=== PATIENT | female | born 1990 | race Asian ===

== ENCOUNTER → 2025-02-24 09:03 | Outpatient (BNVA) | payer SELFPAY | PROVIDERS: PCP Nurse Practitioner Family; Visit Provider Nurse Practitioner Family | DX: E03.9 Hypothyroidism, unspecified (principal); F41.1 Generalized anxiety disorder; Z13.6 Encounter for screening for cardiovascular disorders | CPT/HCPCS: 80053; 80061; 82306; 82607; 82746; 83735; 84439; 84443; 85025; 86376 ==

== ENCOUNTER 2025-03-10 16:42 | Outpatient (CLI) | payer SELFPAY ==
--- NOTE | 2025-03-10 17:00 | US_ITS ---
WS: [id number] THYROID ULTRASOUND HISTORY: E03.9 - Hypothyroidism, unspecified COMPARISON: None available. Right lobe: 1.2 cm x 1.5 cm x 3.7 cm (w x ap x l). Volume: 3.0 cm3. Normal sized thyroid. Very heterogeneous thyroid. There is a nodule in the inferior pole measuring 1.2 x 0.6 x 1.2 cm. This is a hyperechoic focus, ovoid in shape with no echogenic foci. No increased vascularity. Left lobe: 1.3 cm x 1.7 cm x 3.9 cm (w x ap x l). Volume: 4.3 cm3. Normal sized thyroid with heterogeneity. No discrete nodule. No increased vascularity. Isthmus: 0.2 cm. US/US thyroid [id number] IMPRESSION: 1. TI-RADS 3; hypoechoic RIGHT thyroid nodule. Recommend yearly follow-up ultr asound evaluation in 1, 3 and 5 years. 2. Heterogeneous thyroid parenchyma.
== END 2025-03-10 16:43 | disposition home or self-care (01) ==
LOC: RAD 16:45
PROVIDERS: PCP Nurse Practitioner Family; Visit Provider Nurse Practitioner Family
DX: E03.9 Hypothyroidism, unspecified (principal); E04.1 Nontoxic single thyroid nodule; E07.89 Other specified disorders of thyroid
CPT/HCPCS: 76536

== ENCOUNTER → 2025-03-30 08:04 | Outpatient (BNVA) | payer SELFPAY | PROVIDERS: PCP Nurse Practitioner Family; Visit Provider Nurse Practitioner Family | DX: E03.9 Hypothyroidism, unspecified (principal); R30.0 Dysuria; N39.0 Urinary tract infection, site not specified | CPT/HCPCS: 81000; 84443; 86376; 86618; 86666; 86757; 87086 ==